=== PATIENT | female | born 1985 | race Caucasian/White ===

== ENCOUNTER → 2018-05-13 | Outpatient (REF) | payer BC ==
[2018-05-13 17:10] LABS: CHLAMYDIA DNA AMPLIFICATION NEGATIVE (NEGATIVE); GC DNA AMPLIFICATION NEGATIVE (NEGATIVE)
== END ==
LOC: M LAB REF 11:59
DX: N39.0 Urinary tract infection, site not specified (principal)
CPT/HCPCS: 87186

== ENCOUNTER → 2018-06-02 | Outpatient (CLI) | payer BC ==
[2018-06-02 14:41] LABS: BASO % 0.1 % (0.0-1.0); EOS # 0.1 10^3/uL (0.0-0.50); EOS % 1.8 % (0.0-3.0); HEMATOCRIT 36.2 % (36.0-47.0); HEMOGLOBIN 12.4 g/dl (12.0-15.5); IMMATURE GRANULOCYTE % 0.1 % (0-3.0); LYMPH # 2.5 10^3/uL (1.5-4.5); LYMPH % 34.2 % (24.0-44.0); MEAN CORPUSCULAR HEMOGLOBIN 32.2 pg (27.0-33.0); MEAN CORPUSCULAR HGB CONC 34.3 g/dl (32.0-36.5); MONO # 0.6 10^3/uL (0.0-0.8); MONO % 7.7 % (0.0-5.0); NEUTROPHILS # 4.2 10^3/uL (1.8-7.7); NEUTROPHILS % 56.1 % (36.0-66.0); PLATELET COUNT, AUTOMATED 205 10^3/uL (150-450); RED BLOOD COUNT 3.85 10^6/uL (4.00-5.40); RED CELL DISTRIBUTION WIDTH 12.1 % (11.5-14.5); WHITE BLOOD COUNT 7.4 10^3/uL (4.0-10.0)
[2018-06-02 14:47] LABS: PROLACTIN 13.4 NG/ML
[2018-06-02 14:58] LABS: HEPATITIS B SURFACE ANTIGEN NEGATIVE (NEGATIVE)
[2018-06-02 15:26] LABS: HEPATITIS C VIRUS ABY INDEX 0.2 INDEX (<0.8)
[2018-06-02 15:27] LABS: HIV 1&2 SCREEN CENTAUR NEGATIVE (NEGATIVE)
[2018-06-02 18:28] LABS: APPEARANCE, URINE CLEAR (CLEAR); BACTERIA, URINE AUTO 1+ (NEGATIVE); BILIRUBIN, URINE AUTO NEGATIVE (NEGATIVE); BLOOD, URINE BLOOD NEGATIVE (NEGATIVE); COLOR, URINE STRAW (YELLOW); GLUCOSE, URINE (UA) AUTO NEGATIVE (NEGATIVE); KETONE, URINE AUTO NEGATIVE (NEGATIVE); LEUKOCYTE ESTERASE, URINE AUTO 2+ (NEGATIVE); NITRITE, URINE AUTO NEGATIVE (NEGATIVE); PROTEIN, URINE AUTO NEGATIVE (NEGATIVE); RBC, URINE AUTO 0 /HPF (0-3); SPECIFIC GRAVITY URINE AUTO 1.003 (1.002-1.035); SQUAMOUS EPITHELIAL CELL UR AU 0 /HPF (0-6); UROBILINOGEN, URINE AUTO 0.2 mg/dL (0.0-2.0); WBC, URINE AUTO 6 /HPF (0-3)
== END ==
LOC: M WUC 12:07
DX: Z11.3 Encounter for screening for infections with a predominantly sexual mode of transmission (principal); N92.1 Excessive and frequent menstruation with irregular cycle
CPT/HCPCS: 84146

== ENCOUNTER → 2020-02-06 | Outpatient (CLI) | payer BC ==
[~2020-02-06] MED LIST: IBUP80TA PO; PRENTAB74 PO
[2020-02-06 16:44] LABS: BASO % 0.2 % (0.0-1.0); EOS # 0.2 10^3/uL (0.0-0.5); HEMATOCRIT 37.9 % (36.0-47.0); LYMPH # 1.7 10^3/uL (1.5-5.0); LYMPH % 14.8 % (24.0-44.0); MEAN CORPUSCULAR HEMOGLOBIN 32.7 pg (27.0-33.0); MEAN CORPUSCULAR HGB CONC 34.3 g/dl (32.0-36.5); MEAN CORPUSCULAR VOLUME 95.5 fl (80.0-96.0); MONO # 0.8 10^3/uL (0.0-0.8); MONO % 6.9 % (0.0-5.0); NEUTROPHILS # 8.9 10^3/uL (1.5-8.5); NEUTROPHILS % 75.8 % (36.0-66.0); PLATELET COUNT, AUTOMATED 213 10^3/uL (150-450); RED BLOOD COUNT 3.97 10^6/uL (4.00-5.40); WHITE BLOOD COUNT 11.7 10^3/uL (4.0-10.0)
[2020-02-06 17:12] LABS: ALBUMIN 3.9 GM/DL (3.2-5.2); ALT/SGPT 18 U/L (12-78); BILIRUBIN,TOTAL 0.9 MG/DL (0.2-1.0); BLOOD UREA NITROGEN 10 MG/DL (7-18); CALCIUM LEVEL 8.8 MG/DL (8.5-10.1); CARBON DIOXIDE LEVEL 26 MEQ/L (21-32); CHLORIDE LEVEL 107 MEQ/L (98-107); FERRITIN 24 NG/ML (8-252); FREE T4 1.01 NG/DL (0.76-1.46); GLOMERULAR FILTRATION RATE > 60.0 (>60); GLUCOSE, FASTING 83 MG/DL (70-100); IRON (FE) 103 UG/DL (50-170); PERCENT SATURATION 35.8 % (13.2-45.0); POTASSIUM SERUM 3.8 MEQ/L (3.5-5.1); RHEUMATOID FACTOR QUANT < 10.0 IU/ML (<15.0); SODIUM LEVEL 140 MEQ/L (136-145); TOTAL IRON BINDING CAPACITY 288 UG/DL (250-450); TOTAL PROTEIN 7.3 GM/DL (6.4-8.2)
[2020-02-06 17:13] LABS: VITAMIN B12 LEVEL 485 PG/ML
[2020-02-06 17:14] LABS: FOLATE 9.6 NG/ML
--- NOTE | 2020-02-06 19:10 | REP ---
Clinical: Lower back pain . Technique: AP, lateral, and coned-down views. Findings: Alignment and lordosis is maintained. The vertebral bodies including transverse process and spinous processes are intact and normal. There is no evidence for acute fracture / compression injury or subluxation. No evidence for spondylolysis or spondylolisthesis. No significant degenerative change is noted. Impression: Normal age-appropriate lumbosacral spine radiograph series. Electronically Signed by Aman Macias MD 02/06/2020 07:01 P
--- NOTE | 2020-02-06 19:30 | REP ---
Clinical: Chronic Neck pain . Technique: AP, lateral, flexion/extension, bilateral oblique, and open-mouth views. Findings: Alignment and lordosis is maintained. There is no evidence for acute fracture / compression injury or subluxation. Very minimal focal degenerative change at C5-6 include subtle early anterior spurring and minimal disc space narrowing. Oblique views demonstrate patent neural foramen. Open mouth view demonstrates normal C1-C2 articulation and odontoid process. Impression: Very minimal early degenerative changes at C5-6. Otherwise essentially age-appropriate normal examination. Electronically Signed by Aman Macias MD 02/06/2020 07:21 P
[2020-02-09 14:07] LABS: ANTINUCLEAR ANTIBODIES DIRECT Negative (Negative); VITAMIN D 1,25 DIHYDROXY 45.1 pg/mL (19.9-79.3)
== END ==
LOC: M WUC 14:38
PROVIDERS: ATTEND Nurse Practitioner Family
DX: R53.83 Other fatigue (principal); M54.5 Low back pain; M54.2 Cervicalgia

== ENCOUNTER → 2020-02-15 | Outpatient (REF) | payer BC, SELFPAY ==
[2020-02-15 20:45] LABS: CHLAMYDIA DNA AMPLIFICATION NEGATIVE (NEGATIVE); GC DNA AMPLIFICATION NEGATIVE (NEGATIVE)
== END ==
LOC: M LAB REF 17:03
PROVIDERS: ATTEND Nurse Practitioner Family
DX: Z01.419 Encounter for gynecological examination (general) (routine) without abnormal findings (principal)

== ENCOUNTER → 2021-02-13 | Outpatient (CLI) | payer OTHER ==
[2021-02-13 16:17] LABS: BASO % 0.2 % (0.0-1.0); EOS # 0.2 10^3/uL (0.0-0.5); EOS % 2.8 % (0.0-3.0); HEMATOCRIT 37.6 % (36.0-47.0); HEMOGLOBIN 12.4 g/dl (12.0-15.5); LYMPH # 1.8 10^3/uL (1.5-5.0); LYMPH % 31.4 % (24.0-44.0); MEAN CORPUSCULAR VOLUME 97.2 fl (80.0-96.0); MONO # 0.6 10^3/uL (0.0-0.8); MONO % 10.1 % (2.0-8.0); NEUTROPHILS # 3.2 10^3/uL (1.5-8.5); NEUTROPHILS % 55.3 % (36.0-66.0); PLATELET COUNT, AUTOMATED 221 10^3/uL (150-450); RED BLOOD COUNT 3.87 10^6/uL (4.00-5.40); WHITE BLOOD COUNT 5.7 10^3/uL (4.0-10.0)
[2021-02-13 16:57] LABS: THYROID PEROXIDASE ANTIBODY < 28.0 U/ML (<60.0); TOTAL 25(OH) VITAMIN D 37.5 NG/ML (30.0-100.0)
== END ==
LOC: M WUC 11:20
PROVIDERS: ATTEND Nurse Practitioner Family
DX: R53.83 Other fatigue (principal)

== ENCOUNTER → 2021-04-03 | Outpatient (REF) | LOC: M LABSMTC 12:32 | PROVIDERS: ATTEND Pediatrics | DX: Z11.52 Encounter for screening for COVID-19 (principal) ==

== ENCOUNTER → 2021-06-17 | Outpatient (REF) | LOC: M EMP 14:29 | PROVIDERS: ATTEND Family Medicine | DX: Z20.828 Contact with and (suspected) exposure to other viral communicable diseases (principal); Z11.59 Encounter for screening for other viral diseases ==

== ENCOUNTER → 2021-07-04 | Outpatient (REF) | LOC: M EMP 10:58 | PROVIDERS: ATTEND Family Medicine | DX: Z20.822 Contact with and (suspected) exposure to COVID-19 (principal) ==

== ENCOUNTER → 2021-07-08 | Outpatient (REF) | LOC: M EMP 09:42 | PROVIDERS: ATTEND Family Medicine | DX: Z20.828 Contact with and (suspected) exposure to other viral communicable diseases (principal); Z11.52 Encounter for screening for COVID-19 ==

== ENCOUNTER → 2021-07-31 | Outpatient (CLI) | payer SELFPAY ==
[~2021-07-31] MED LIST changes: +CETI-24 PO; +CYAN500T14 PO; +GUMMCHW PO; +LORY1TAB2 PO
== END ==
LOC: M LABSMTC 10:13
PROVIDERS: ATTEND Anesthesiology
DX: Z01.818 Encounter for other preprocedural examination (principal); Z11.52 Encounter for screening for COVID-19

== ENCOUNTER 2021-08-05 07:31 | Day surgery (SDC) | payer BC, SELFPAY ==
[~2021-08-05] VITALS: Ht 160 cm; Wt 61.6 kg
[~2021-08-05 07:31] MED LIST changes: +LR 1,000 ML IV ONE
--- OUTSIDE RECORDS SUMMARY | 2021-08-05 07:37 | CCD ---
Author Author [facility] Organization [facility] Address Unknown Phone Unavailable Care Team Providers Care Ski Maker Wood Name Role Phone Inna Rod MD Unavailable Unavailable Abriss B Cezar MARSHALL Unavailable Unavailable Abriss B Cezar MARSHALL Unavailable Unavailable Abriss B Cezar MARSHALL Unavailable Unavailable Abriss B Cezar MARSHALL Unavailable Unavailable Abriss B Cezar MARSHALL Unavailable Unavailable Abriss B Cezar MARSHALL Unavailable Unavailable Abriss B Cezar MARSHALL Unavailable Unavailable Abriss B Cezar MARSHALL Unavailable Unavailable Abriss B Cezar MARSHALL Unavailable Unavailable Abriss B Cezar MARSHALL Unavailable Unavailable Abriss B Cezar MARSHALL Unavailable Unavailable Abrterence B Cezar MARSHALL Unavailable Unavailable Abrterence B Cezar MARSHALL Unavailable Unavailable Abrterence B Cezar MARSHALL Unavailable Unavailable Abriss B Cezar MARSHALL Unavailable Unavailable Abriss B Cezar MARSHALL Unavailable Unavailable Abriss B Cezar MARSHALL Unavailable Unavailable Abriss B Cezar MARSHALL Unavailable Unavailable Pleskach, Claudia YARN BLEACHING MACHINE OPERATOR Unavailable Unavailable Pleskach, Claudia YARN BLEACHING MACHINE OPERATOR Unavailable Unavailable Pleskach, Claudia YARN BLEACHING MACHINE OPERATOR Unavailable Unavailable Pleskach, Claudia YARN BLEACHING MACHINE OPERATOR Unavailable Unavailable Pleskach, Claudia YARN BLEACHING MACHINE OPERATOR Unavailable Unavailable Pleskach, Claudia YARN BLEACHING MACHINE OPERATOR Unavailable Unavailable Pleskach, Claudia YARN BLEACHING MACHINE OPERATOR Unavailable Unavailable Pleskach, Claudia YARN BLEACHING MACHINE OPERATOR Unavailable Unavailable Pleskach, Claudia YARN BLEACHING MACHINE OPERATOR Unavailable Unavailable Pleskach, Claudia YARN BLEACHING MACHINE OPERATOR Unavailable Unavailable Pleskach, Claudia YARN BLEACHING MACHINE OPERATOR Unavailable Unavailable Pleskach, Claudia YARN BLEACHING MACHINE OPERATOR Unavailable Unavailable Pleskach, Claudia YARN BLEACHING MACHINE OPERATOR Unavailable Unavailable Pleskach, Claudia YARN BLEACHING MACHINE OPERATOR Unavailable Unavailable Pleskach, Claudia YARN BLEACHING MACHINE OPERATOR Unavailable Unavailable Pleskach, Claudia YARN BLEACHING MACHINE OPERATOR Unavailable Unavailable Pleskach, Claudia YARN BLEACHING MACHINE OPERATOR Unavailable Unavailable Pleskach, Claudia YARN BLEACHING MACHINE OPERATOR Unavailable Unavailable Pleskach, Claudia YARN BLEACHING MACHINE OPERATOR Unavailable Unavailable Pleskach, Clauida YARN BLEACHING MACHINE OPERATOR Unavailable Unavailable Pleskach, Claudia YARN BLEACHING MACHINE OPERATOR Unavailable Unavailable Pleskach, Claudia YARN BLEACHING MACHINE OPERATOR Unavailable Unavailable Pleskach, Claudia YARN BLEACHING MACHINE OPERATOR Unavailable Unavailable Pleskach, Claudia YARN BLEACHING MACHINE OPERATOR Unavailable Unavailable Pleskach, Claudia YARN BLEACHING MACHINE OPERATOR Unavailable Unavailable Pleskach, Claudia YARN BLEACHING MACHINE OPERATOR Unavailable Unavailable Pleskach, Claudia YARN BLEACHING MACHINE OPERATOR Unavailable Unavailable Pleskach, Claudia YARN BLEACHING MACHINE OPERATOR Unavailable Unavailable Pleskach, Claudia YARN BLEACHING MACHINE OPERATOR Unavailable Unavailable Pleskach, Claudia YARN BLEACHING MACHINE OPERATOR Unavailable Unavailable Pleskach, Claudia YARN BLEACHING MACHINE OPERATOR Unavailable Unavailable Pleskach, Claudia YARN BLEACHING MACHINE OPERATOR Unavailable Unavailable Pleskach, Claudia YARN BLEACHING MACHINE OPERATOR Unavailable Unavailable Pleskach, Claudia YARN BLEACHING MACHINE OPERATOR Unavailable Unavailable Pleskach, Claudia YARN BLEACHING MACHINE OPERATOR Unavailable Unavailable Pleskach, Claudia YARN BLEACHING MACHINE OPERATOR Unavailable Unavailable Pleskach, Claudia YARN BLEACHING MACHINE OPERATOR Unavailable Unavailable Pleskach, Claudia YARN BLEACHING MACHINE OPERATOR Unavailable Unavailable Pleskach, Claudia YARN BLEACHING MACHINE OPERATOR Unavailable Unavailable Pleskach, Claudia YARN BLEACHING MACHINE OPERATOR Unavailable Unavailable Pleskach, Claudia YARN BLEACHING MACHINE OPERATOR Unavailable Unavailable Pleskach, Claudia YARN BLEACHING MACHINE OPERATOR Unavailable Unavailable Pleskach, Claudia YARN BLEACHING MACHINE OPERATOR Unavailable Unavailable Pleskach, Claudia YARN BLEACHING MACHINE OPERATOR Unavailable Unavailable Ivan Stone PH.D., M.D. Unavailable Unavailable Ivan Stone PH.D., M.D. Unavailable Unavailable Ivan Stone PH.D., M.D. Unavailable Unavailable Ivan Stone PH.D., M.D. Unavailable Unavailable Ivan Stone PH.D., M.D. Unavailable Unavailable Ivan Stone PH.D., M.D. Unavailable Unavailable Chase, C Shahid PH.D., M.D. Unavailable Unavailable Chase, C Shahid PH.D., M.D. Unavailable Unavailable Chase, C Shahid PH.D., M.D. Unavailable Unavailable Chase, C Shahid PH.D., M.D. Unavailable Unavailable Chase, C Shahid PH.D., M.D. Unavailable Unavailable Chase, C Shahid PH.D., M.D. Unavailable Unavailable Chase, C Shahid PH.D., M.D. Unavailable Unavailable Chase, C Shahid PH.D., M.D. Unavailable Unavailable Chase, C Shahid PH.D., M.D. Unavailable Unavailable Chase, C Shahid PH.D., M.D. Unavailable Unavailable Chase, C Shahid PH.D., M.D. Unavailable Unavailable Chase, C Shahid PH.D., M.D. Unavailable Unavailable Chase, C Shahid PH.D., M.D. Unavailable Unavailable Chase, C Shahid PH.D., M.D. Unavailable Unavailable Chase, C Shahid PH.D., M.D. Unavailable Unavailable Chase, C Shahid PH.D., M.D. Unavailable Unavailable Chase, C Shahid PH.D., M.D. Unavailable Unavailable Chase, C Shahid PH.D., M.D. Unavailable Unavailable Chase, C Shahid PH.D., M.D. Unavailable Unavailable Chase, C Shahid PH.D., M.D. Unavailable Unavailable Chase, C Shahid PH.D., M.D. Unavailable Unavailable Chase, C Shahid PH.D., M.D. Unavailable Unavailable Chase, C Shahid PH.D., M.D. Unavailable Unavailable Chase, C Shahid PH.D., M.D. Unavailable Unavailable Chase, C Shahid PH.D., M.D. Unavailable Unavailable Chase, C Shahid PH.D., M.D. Unavailable Unavailable Chase, C Shahid PH.D., M.D. Unavailable Unavailable Chase, C Shahid PH.D., M.D. Unavailable Unavailable Chase, C Shahid PH.D., M.D. Unavailable Unavailable Chase, C Shahid PH.D., M.D. Unavailable Unavailable Chase, C Shahid PH.D., M.D. Unavailable Unavailable Chase, C Shahid PH.D., M.D. Unavailable Unavailable Chase, C Shahid PH.D., M.D. Unavailable Unavailable Chase, C Shahid PH.D., M.D. Unavailable Unavailable Chase, C Shahid PH.D., M.D. Unavailable Unavailable Chase, C Shahid PH.D., M.D. Unavailable Unavailable Chase, C Shahid PH.D., M.D. Unavailable Unavailable Chase, C Shahid PH.D., M.D. Unavailable Unavailable Chase, C Shahid PH.D., M.D. Unavailable Unavailable Chase, C Shahid PH.D., M.D. Unavailable Unavailable Chase, C Shahid PH.D., M.D. Unavailable Unavailable Chase, C Shahid PH.D., M.D. Unavailable Unavailable Chase, C Shahid PH.D., M.D. Unavailable Unavailable Chase, C Shahid PH.D., M.D. Unavailable Unavailable Chase, C Shahid PH.D., M.D. Unavailable Unavailable Chase, C Shahid PH.D., M.D. Unavailable Unavailable Chase, C Shahid PH.D., M.D. Unavailable Unavailable Chase, C Shahid PH.D., M.D. Unavailable Unavailable Chase, C Shahid PH.D., M.D. Unavailable Unavailable Chase, C Hsahid PH.D., M.D. Unavailable Unavailable Chase, C Shahid PH.D., M.D. Unavailable Unavailable Chase, C Shahid PH.D., M.D. Unavailable Unavailable Chase, C Shahid PH.D., M.D. Unavailable Unavailable Chase, C Shahid PH.D., M.D. Unavailable Unavailable Chase, C Shahdi PH.D., M.D. Unavailable Unavailable Chase, C Shahid PH.D., M.D. Unavailable Unavailable Chase, C Shahid PH.D., M.D. Unavailable Unavailable Chase, C Shahid PH.D., M.D. Unavailable Unavailable Chase, C Shahid PH.D., M.D. Unavailable Unavailable Chase, C Shahid PH.D., M.D. Unavailable Unavailable Chase, C Shahid PH.D., M.D. Unavailable Unavailable Chase, C Shahid PH.D., M.D. Unavailable Unavailable Chase, C Shahid PH.D., M.D. Unavailable Unavailable Chase, C Shahid PH.D., M.D. Unavailable Unavailable Chase, C Shahid PH.D., M.D. Unavailable Unavailable Chase, C Shahid PH.D., M.D. Unavailable Unavailable Chase, C Shahid PH.D., M.D. Unavailable Unavailable Chase, C Shahid PH.D., M.D. Unavailable Unavailable Ivan Stone PH.D., M.D. Unavailable Unavailable Ivan Stone PH.D., M.D. Unavailable Unavailable Ivan Stone PH.D., M.D. Unavailable Unavailable Ivan Stone PH.D., M.D. Unavailable Unavailable Ivan Stone PH.D., M.D. Unavailable Unavailable Ivan Stone PH.D., M.D. Unavailable Unavailable Ivan Stone PH.D., M.D. Unavailable Unavailable Ivan Stone PH.D., M.D. Unavailable Unavailable Re-disclosure Warning The records that you are about to access may contain information from federally-assisted alcohol or drug abuse programs. If such information is present, then the following federally mandated warning applies: This information has been disclosed to you from records protected by federal confidentiality rules (42 CFR part 2). The federal rules prohibit you from making any further disclosure of this information unless further disclosure is expressly permitted by the written consent of the person to whom it pertains or as otherwise permitted by 42 CFR part 2. A general authorization for the release of medical or other information is NOT sufficient for this purpose. The Federal rules restrict any use of the information to criminally investigate or prosecute any alcohol or drug abuse patient.The records that you are about to access may contain highly sensitive health information, the redisclosure of which is protected by Article 27-F of the [facility] Public Health law. If you continue you may have access to information: Regarding HIV / AIDS; Provided by facilities licensed or operated by the [facility] Office of Mental Health; or Provided by the [facility] Office for People With Developmental Disabilities. If such information is present, then the following [facility] mandated warning applies: This information has been disclosed to you from confidential records which are protected by state law. State law prohibits you from making any further disclosure of this information without the specific written consent of the person to whom it pertains, or as otherwise permitted by law. Any unauthorized further disclosure in violation of state law may result in a fine or fpc sentence or both. A general authorization for the release of medical or other information is NOT sufficient authorization for further disc losure. Allergies and Adverse Reactions Type Description Substance Reaction Status Data Source(s ) Drug Allergy Drug Allergy [facility] ([facility] Family History Family Member Name Family Member Gender Family Member Status Date o f Status Description Data Source(s) Unknown Unknown Problem [facility] ([facility]) Unknown Unknown Problem [facility] ([facility]) Encounters Encounter Providers Location Date Indications Data Source(s ) Outpatient Attender: Shahid Stone PH.D., M.D. Gentry/Anabel/A ngel/Reindl 06/28/2021 02:45:00 PM EDT MED[facility] ([facility], ) Outpatient Attender: Cezar Rinaldi/Anabel/Jarred/Re indl 02/12/2021 09:30:00 AM EDT MED[facility] ([facility]pe, ) [place] [address] [facility] [address] 01/15/2021 12:00:00 AM EDT eCW1 ([facility]) Outpatient Attender: Claudia Mitchell [facility] Main Office 01/14/2021 1 0:30:00 AM EDT [facility] ([facility] [place] [address] [facility] [address] 11/16/2020 12:00:00 AM EST eCW1 ([facility]) [place] [address] [facility] [place] [address] 11/15/2020 12:00:00 AM EST eCW1 ([facility]) Immunizations Vaccine Date Status Description Data Source(s) COVID-19 VACCINE Moderna 10/22/2020 12:00:00 AM EST completed [facility] Vaccine Series Complete: YESThis Data wa s Submitted to [facility] Via This Week In. Moderna Sars-(Covid-19) vaccine, mRNA, LNP-S, PF, 100 mcg/ 0.5 mL 10/21/2020 11:00:00 PM EST completed [facility] ([facility] COVID-19 VACCINE Moderna 09/24/2020 12:00:00 AM EST completed [facility] Vaccine Series Complete: NOThis Data was Submitted to [facility] Via This Week In. Moderna Sars-(Covid-19) vaccine, mRNA, LNP-S, PF, 100 mcg/ 0.5 mL 09/23/2020 11:00:00 PM EST completed [facility] ([facility] Medications Medication Brand Name Start Date Product Form Dose Route Admi nistrative Instructions Pharmacy Instructions Status Indications Reaction Description Data Source(s) Drospirenone-Ethinyl Estradiol 3-0.02 MG Drospirenone- Ethinyl Estradiol 3-0.02 MG 11/16/2020 12:00:00 AM EST 1.0 {tablet} activ e Drospirenone- Ethinyl Estradiol 3-0.02 MG eCW1 ([facility]) Drospirenone-Ethinyl Estradiol 3-0.02 MG Drospirenone- Ethinyl Estradiol 3-0.02 MG 11/16/2020 12:00:00 AM EST 1.0 {tablet} activ e Drospirenone- Ethinyl Estradiol 3-0.02 MG eCW1 ([facility]) Drospirenone-Ethinyl Estradiol 3-0.02 MG Drospirenone- Ethinyl Estradiol 3-0.02 MG 11/16/2020 12:00:00 AM EST 1.0 {tablet} activ e Drospirenone- Ethinyl Estradiol 3-0.02 MG eCW1 ([facility]) Loryna 28 Day Pack 3-0.02 mg ETHINYL ESTRADIOL/DROSPIRENONE 11/16/2020 12:00:00 AM EST tablet 28 TAKE ONE TABLET BY MOUTH MARK RY DAY TAKE ONE TABLET BY MOUTH EVERY DAY SOLD: 12/17/2020 [facility] Loryna 28 Day Pack 3-0.02 mg ETHINYL ESTRADIOL/DROSPIRENONE 11/16/2020 12:00:00 AM EST tablet 28 TAKE ONE TABLET BY MOUTH MARK RY DAY TAKE ONE TABLET BY MOUTH EVERY DAY SOLD: 11/19/2020 [facility] 5 mg/gram (0.5 %) 07/16/2020 12:00:00 AM EDT ointment 3 APPLY TO SUTURES FOUR TIMES A DAY FOR 7-10 DAYS APPLY TO SUTURES FOUR TIMES A DAY FOR 7-10 DAYS SOLD: 07/18/2020 [facility] Insurance Providers Payer name Policy type / Coverage type Policy ID Covered alliance party ID Covered alliance party's relationship to ceron Policy Ceron Plan Information BLUE [employer] AND [facility] 1 [id number] 1 [id number] [facility] [id number] Self [id number] [place] [employer] PLAN O [id number] S [id number] [place] [employer] O [id number] S [id number] [place] [place] WAT[place] 306/806 [id number] SP [id number] [employer] BCBS B [id number] S VYS [id number] [place] [employer] [place] Commercial [id number] Self [id number] [employer] Commercial [id number] Self [id number] [employer] Commercial [id number] Self [id number] [id number] [id number] [facility] [id number] [facility] [id number] [facility] COMMUNITY PLAN [facility] [id number] SP [id number] BLUE [employer] PLAN [id number] SP [id number] [facility] BLUE [id number] SP [id number] SELF PAY ONLY [id number] SP [id number] UN [place] CHOICE PLUS [id number] SP [id number] Problems, Conditions, and Diagnoses Code Display Name Description Problem Type Effective Dates Data Source(s) J35.01 Chronic tonsillitis Chronic tonsillitis Problem 1 12:00:00 AM EDT GWENDOLYN ([facility], ) R19.6 Symptom of head and neck region Symptom of head and ne ck region Problem 06/28/2021 12:00:00 AM EDT MEDELIGIO ([facility], ) F32.81 [id number] PMDD (premenstrual dysphoric disorder) Pr oblem 11/15/2020 12:00:00 AM EST eCW1 ([facility]) N94.6 [id number] Dysmenorrhea Problem 11/15/2020 12:00:00 AM EST eCW1 ([facility]) N93.9 [id number] Abnormal uterine bleeding (AUB) Problem 11/15/2020 12:00:00 AM EST eCW1 ([facility]) Surgeries/Procedures Procedure Description Date Indications Data Source(s) OFFICE OUTPATIENT VISIT 25 MINUTES 06/28/2021 12:00:00 AM EDT [facility] ([facility]) OFFICE OUTPATIENT NEW 30 MINUTES 02/12/2021 12:00:00 A M EDT [facility] ([facility]) Results ID Date Data Source [id number] 07/08/2021 09:44:00 AM EDT [facility] Name Value Range Interpretation Code Description Data Rosa rce(s) Supporting Document(s) SARS coronavirus 2 RNA [Presence] in Res piratory specimen by LYNN with probe detection NEGATIVE [facility] This lab was ordered by [facility] a nd reported by [facility]. ID Date Data Source [id number] 07/04/2021 11:02:00 AM EDT [facility] Name Value Range Interpretation Code Description Data Rosa rce(s) Supporting Document(s) SARS coronavirus 2 RNA [Presence] in Res piratory specimen by LYNN with probe detection NEGATIVE [facility] This lab was ordered by [facility] a nd reported by [facility]. ID Date Data Source [id number] 06/17/2021 02:32:00 PM EDT [facility] Name Value Range Interpretation Code Description Data Rosa rce(s) Supporting Document(s) SARS coronavirus 2 RNA [Presence] in Res piratory specimen by LYNN with probe detection NEGATIVE [facility] This lab was ordered by [facility] a nd reported by [facility]. ID Date Data Source [id number] 02/13/2021 11:20:00 AM EDT [facility] ([facility] Name Value Range Interpretation Code Description Data Rosa rce(s) Supporting Document(s) Thryoglobulin Antibodies (Mahesh) Laboratory test result 0.0-0.9 [facility] ([facility] Thyroglobulin Antibody measured by [employer] [facility] Thyroglobulin Quantitative 24.8 ng/mL 1.5-38.5 [facility] ([facility] . According to the National Academy of Clinical Biochemistry, the reference interval for Thyroglobulin (TG) should be related to euthyroid patients and not for patients who underwent thyroidectomy. TG reference intervals for these patients depend on the residual mass of the thyroid tissue left after surgery. Establishing a post-operative baseline is recommended. The assay limit of quantitation is 0.1 ng/mL . Thyroglobulin measured by [employer] [facility] Performed at: [facility] [phone] [employer] Analyst: Rita De La Rosa MD, Phone: [phone] ID Date Data Source [id number] 02/13/2021 11:20:00 AM EDT [facility] ([facility] Name Value Range Interpretation Code Description Data Rosa [facility](s) Supporting Document(s) Calcidiol [Mass/volume] in Serum or Plasma 37.5 ng/mL 30.0-100.0 [facility] ([facility] Thyroperoxidase Ab [Units/volume] in Serum or Plasma Laboratory shahla t result [facility] ([facility] ID Date Data Source [id number] 02/13/2021 11:20:00 AM EDT [facility] ([facility] Name Value Range Interpretation Code Description Data Rosa [facility](s) Supporting Document(s) Thyrotropin [Units/volume] in Serum or Plasma 1.420 uIU/ML 0.358-3.74 0 [facility] ([facility] Thyroxine (T4) free [Mass/volume] in Serum or Plasma 1.10 ng/dL 0.76- 1.46 [facility] ([facility] ID Date Data Source [id number] 02/13/2021 11:20:00 AM EDT [facility] ([facility] Name Value Range Interpretation Code Description Data Rosa rce(s) Supporting Document(s) White Blood Count 5.7 10 4.0-10.0 [facility] ([facility] Hemoglobin 12.4 g/dL 12.0-15.5 [facility] ([facility] Red Blood Count 3.87 10 4.00-5.40 [facility] ([facility] Mean Corpuscular Volume 97.2 fl 80.0-96.0 M EDENT ([facility] Mean Corpuscular Hemoglobin 32.0 pg 27.0-33.0 [facility] ([facility] Hematocrit 37.6 % 36.0-47.0 [facility] ([facility] Mean Corpuscular HGB Conc 33.0 g/dL 32.0-36.5 [facility] ([facility] Red Cell Distribution Width 12.3 % 11.5-14.5 [facility] ([facility] Platelet Count, Automated 221 10 150-450 [facility] ([facility] Neutrophils % 55.3 % 36.0-66.0 [facility] ([facility] Lymph % 31.4 % 24.0-44.0 [facility] ([facility] Eos % 2.8 % 0.0-3.0 [facility] ([facility] [place] % 10.1 % 2.0-8.0 [facility] ([facility] Baso % 0.2 % 0.0-1.0 [facility] ([facility] Immature Granulocyte % 0.2 % 0-3.0 [facility] ([facility] Nucleated Red Blood Cell % 0.0 % 0-0 MED [facility] ([facility] Neutrophils # 3.2 10 1.5-8.5 [facility] ([facility] Lymph # 1.8 10 1.5-5.0 [facility] ([facility] [place] # 0.6 10 0.0-0.8 [facility] ([facility] Eos # 0.2 10 0.0-0.5 [facility] ([facility] Baso # 0.0 10 0.0-0.2 [facility] ([facility] ID Date Data Source [id number] 07/18/2020 12:00:00 AM EDT [facility] Name Value Range Interpretation Code Description Data Rosa rce(s) Supporting Document(s) SARS coronavirus 2 Ag [facility] This lab was ordered by [facility] and reported by [facility]. Procedure Social History Code Duration Value Status Description Data Source(s ) Smoking 01/14/2021 12:00:00 AM EDT Patient is a former smoker completed Patient is a former smoker [facility] ([facility] Smoking 11/15/2020 12:00:00 AM EST Former Smoker completed Former Smoker eCW1 ([facility]) Smoking 11/15/2020 12:00:00 AM EST Former Smoker completed Former Smoker eCW1 ([facility]) Smoking 11/15/2020 12:00:00 AM EST Former Smoker completed Former Smoker eCW1 ([facility]) Vital Signs ID Date Data Source UNK Name Value Range Interpretation Code Description Data Source(s) Body height 63 [in_i] 63 [in_i] MEDENT ([facility]) 5'3" Body weight 140.00 [lb_av] 140.00 [lb_av] MEDEN T ([facility]) Body mass index (BMI) [Ratio] 24.8 kg/m2 24.8 k g/m2 [facility] ([facility]) [place] body weight 115 [lb_av] 115 [lb_av] MEDEN T ([facility]) Body weight 63.504 kg [address] [facility] ([facility]) Body surface area Derived from formula 1.66 m2 1.[address] [facility] ([facility]) Heart rate 82 /min 82 /min [facility] ([facility]) Oxygen saturation in Arterial blood by Pulse oximetry 100 % 100 % [facility] ([facility]) Systolic blood pressure 138 mm[Hg] 138 mm[Hg] [facility] Diastolic blood pressure 79 mm[Hg] 79 mm[Hg] [facility] ([facility]) Body height 63 [in_i] 63 [in_i] [facility] ([facility]) 5'3" Body weight 139.00 [lb_av] 139.00 [lb_av] MEDEN T ([facility]) Body mass index (BMI) [Ratio] 24.6 kg/m2 24.6 k g/m2 [facility] ([facility]) D[place]her body weight 115 [lb_av] 115 [lb_av] MEDEN T ([facility]) Body weight 63.050 kg [address] [facility] ([facility]) Body surface area Derived from formula 1.66 m2 1.[address] [facility] ([facility]) Body height 63 [in_i] 63 [in_i] [facility] ([facility]) 5'3" Body weight 139.00 [lb_av] 139.00 [lb_av] MEDEN T ([facility]) Body mass index (BMI) [Ratio] 24.6 kg/m2 24.6 k g/m2 [facility] ([facility]) [place] body weight 115 [lb_av] 115 [lb_av] MEDEN T ([facility]) Body weight 63.050 kg 63.050 kg [facility] ([facility]) Body surface area Derived from formula 1.66 m2 1.66 m2 [facility] ([facility]) Systolic blood pressure 118 mm[Hg] 118 mm[Hg] M EDENT ([facility] Diastolic blood pressure 892 mm[Hg] 892 mm[Hg] [facility] ([facility] Heart rate 80 /min 80 /min [facility] ([facility] Body temperature 97.1 [degF] 97.1 [degF] [facility] ([facility] Respiratory rate 16 /min 16 /min [facility] ( [facility] Body height 63 [in_i] 63 [in_i] [facility] [facility] 5'3" Body weight 143.25 [lb_av] 143.25 [lb_av] MEDEN T ([facility] Oxygen saturation in Arterial blood by Pulse oximetry 99 % 99 % MEDENT ([facility] [place] body weight 115 [lb_av] 115 [lb_av] MEDEN T ([facility] Body mass index (BMI) [Ratio] 25.4 kg/m2 25.4 k g/m2 MEDENT ([facility] Body weight 146 [lb_av] 146 [lb_av] eCW1 ([facility]) Body weight 66.22 kg 66.22 kg eCW1 ([facility]) Body height 63 [in_i] 63 [in_i] eCW1 ([facility]) Body mass index (BMI) [Ratio] 25.86 kg/m2 25.86 kg/m2 eCW1 ([facility]) Systolic blood pressure 120 mm[Hg] 120 mm[Hg] e CW1 ([facility]) Diastolic blood pressure 80 mm[Hg] 80 mm[Hg] eCW1 ([facility]) Patient Treatment Plan of Care Planned Activity Planned Date Details Description Data Source (s) Drospirenone-Ethinyl Estradiol 3-0.02 MG 11/16/2020 12:00:00 AM EST eCW1 ([facility]) Drospirenone-Ethinyl Estradiol 3-0.02 MG 11/16/2020 12:00:00 AM EST eCW1 ([facility]) Drospirenone-Ethinyl Estradiol 3-0.02 MG 11/16/2020 12:00:00 AM EST eCW1 ([facility])
--- OUTSIDE RECORDS SUMMARY | 2021-08-05 07:37 | CCD | Continuity of Care Document ---
Author Author Luciana STONE MD Organization Unknown Address [address] [facility] [address] [place] [address] Phone [phone] Care Team Providers Care Oracle Iam Consultant Name Role Phone Claudia Mitchell N.P. AUTM [phone] Problems Active Problems Provider Date Symptom of head and neck region Shahid Stone MD Onset: 1 Chronic tonsillitis Shahid Stone MD Onset: 06/28/2021 Social History Type Date Description Comments Sex Unknown ETOH Use 3 A Month Recreational Drug Use Denies Drug Use Tobacco Use Start: Unknown End: Unknown Patient is a former smoker Allergies, Adverse Reactions, Alerts Active Allergies Criticality Reaction | Severity Comments Date Clindamycin Unable to assess criticality 02/12/2021 Inactive Allergies NKDA Unable to assess criticality 02/12/2021 Medications Active Medications SIG Qnty Indications Ordering Provide r Date Drospirenone-Ethinyl Estradiol 3-0.02mg Tablets Gris Morgan, A.R.N.P. Zyrtec Allergy 10mg Capsules 1 by mouth every day Unknown Immunizations Description No Information Available Vital Signs Date Vital Result Comment 06/28/2021 2:46pm BP Systolic 138 mmHg BP Diastolic 79 mmHg Heart Rate 82 /min O2 % BldC Oximetry 100 % Height 63 inches 5'3" Weight 140.00 lb BMI (Body Mass Index) 24.8 kg/m2 [place] Body Weight 115 lb Weight 63.504 kg BSA (Body Surface Area) 1.66 m2 02/12/2021 9:55am Height 63 inches 5'3" Weight 139.00 lb BMI (Body Mass Index) 24.6 kg/m2 [place] Body Weight 115 lb Weight 63.050 kg BSA (Body Surface Area) 1.66 m2 Results Description No Information Available Procedures Date Code Description Status 06/28/2021 67993 Office/Outpatient Established Mo d MDM 30-39 Min Completed 02/12/2021 29744 Office/Outpatient New Low MDM 30 -44 Minutes Completed Medical Devices Description No Information Available Encounters Type Date Location Provider Dx Diagnosis Office Visit 06/28/2021 2:45p Located within [facility] David Nova J35.01 Chronic tonsillitis R19.6 Halitosis Office Visit 02/12/2021 9:30a Located within [facility] Cezar Rod MD J35.01 Chronic tonsillitis Assessments Date Code Description Provider 06/28/2021 J35.01 Chronic tonsillitis Shahid Stone MD 06/28/2021 R19.6 Halitosis Shahid Stone MD 02/12/2021 J35.01 Chronic tonsillitis Cezar jasso MD Plan of Treatment 06/28/2021 - Shahid Stone MD* J35.01 Chronic tonsillitis* New Orders:* Tonsillectomy Greater Than 12 Years, Ordered: 06/28/21 * Comments:* Given that tomi has failed all conservative efforts to control her chronic tonsillitis and halitosis we recommended tonsillectomy procedure. I reviewed the risks and benefits of all and all questions were answered. She indicated she would like to proceed. We will arrange for this in the near future as soon as schedules permit. She will refrain from use of any NSAID type products or Multivite's for 2 weeks before the procedure. * R19.6 Halitosis Functional Status Description No Information Available Mental Status Description No Information Available Referrals Refer to Reason for Referral Status Appt Date Cezar Rod M.D. Chronic tonsil stones Scheduled 02/2021 [facility] [address] [address] [phone]
--- OUTSIDE RECORDS SUMMARY | 2021-08-05 07:37 | CCD | Continuity of Care Document ---
Author Author Luciana STONE MD Organization Unknown Address [address] [facility] [address] [place] [address] Phone [phone] Care Team Providers Care Animal Anatomist Name Role Phone Claudia Mitchell N.P. AUTM [phone] Problems Active Problems Provider Date Symptom of [...] lb BMI (Body Mass Index) 24.8 kg/m2 [place] Body Weight 115 lb Weight 63.504 kg BSA (Body Surface Area) 1.66 m2 02/12/2021 9:55am Height 63 inches 5'3" Weight 139.00 lb BMI (Body Mass Index) 24.6 kg/m2 [place] Body Weight 115 lb Weight 63.050 kg BSA (Body Surface Area) 1.66 m2 Results Description No Information Available Procedures Date Code Description Status 06/28/2021 32199 Office/Outpatient Established Mo d MDM 30-39 Min Completed 02/12/2021 31723 Office/Outpatient New Low MDM 30 -44 Minutes Completed Medical Devices Description No Information Available Encounters Type Date Location Provider Dx Diagnosis Office Visit 06/28/2021 2:45p [facility] David Nova J35.01 Chronic tonsillitis R19.6 Halitosis Office Visit 02/12/2021 9:30a [facility] Cezar Rod MD J35.01 Chronic tonsillitis [...] Rod M.D. Chronic tonsil stones Scheduled 02/2021 [facility] [address] [address] [phone]
--- OUTSIDE RECORDS SUMMARY | 2021-08-05 07:37 | CCD | Continuity of Care Document ---
Author Author Luciana STONE MD Organization Unknown Address [address] [facility] [address] [place] [address] Phone [phone] Care Team Providers Care Lead Sewage Plant Operator Name Role Phone Claudia Mitchell N.P. AUTM [phone] Problems Active Problems Provider Date Symptom of [...] lb BMI (Body Mass Index) 24.8 kg/m2 [place] Body Weight 115 lb Weight 63.504 kg BSA (Body Surface Area) 1.66 m2 02/12/2021 9:55am Height 63 inches 5'3" Weight 139.00 lb BMI (Body Mass Index) 24.6 kg/m2 [place] Body Weight 115 lb Weight 63.050 kg BSA (Body Surface Area) 1.66 m2 Results Description No Information Available Procedures Date Code Description Status 06/28/2021 19555 Office/Outpatient Established Mo d MDM 30-39 Min Completed 02/12/2021 84604 Office/Outpatient New Low MDM 30 -44 Minutes Completed Medical Devices Description No Information Available Encounters Type Date Location Provider Dx Diagnosis Office Visit 06/28/2021 2:45p [facility] David Nova J35.01 Chronic tonsillitis R19.6 Halitosis Office Visit 02/12/2021 9:30a [facility] Cezar Rod MD J35.01 [...] Rod M.D. Chronic tonsil stones Scheduled 02/2021 [facility] [address] [address] [phone]
--- OUTSIDE RECORDS SUMMARY | 2021-08-05 07:37 | CCD | Continuity of Care Document ---
Author Author Luciana STONE MD Organization Unknown Address [address] [facility] [address] [place] [address] Phone [phone] Care Team Providers Care [place] Name Role Phone Claudia Mitchell N.P. AUTM [phone] Problems Active Problems Provider Date Symptom of [...] lb BMI (Body Mass Index) 24.8 kg/m2 [place] Body Weight 115 lb Weight 63.504 kg BSA (Body Surface Area) 1.66 m2 02/12/2021 9:55am Height 63 inches 5'3" Weight 139.00 lb BMI (Body Mass Index) 24.6 kg/m2 [place] Body Weight 115 lb Weight 63.050 kg BSA (Body Surface Area) 1.66 m2 Results Description No Information Available Procedures Date Code Description Status 06/28/2021 42568 Office/Outpatient Established Mo d MDM 30-39 Min Completed 02/12/2021 86320 Office/Outpatient New Low MDM 30 -44 Minutes Completed Medical Devices Description No Information Available Encounters Type Date Location Provider Dx Diagnosis Office Visit 06/28/2021 2:45p [facility] David Nova J35.01 Chronic tonsillitis R19.6 Halitosis Office Visit 02/12/2021 9:30a [facility] Cezar Rod MD J35.01 Chronic tonsillitis [...] Rod M.D. Chronic tonsil stones Scheduled 02/2021 [facility] [address] [address] [phone]
[2021-08-05] MEDS ORDERED: LIDOCAINE 2% 100MG/5ML SDV (FOR ANES.) As Ordered ONE (09:08)
[2021-08-05] MEDS ORDERED: MIDAZOLAM INJ 2MG/2ML VIAL (J2250 PER 1MG) As Ordered ONE (09:08)
[2021-08-05] MEDS ORDERED: dexameTHASONE 4 MG/ML 1ML VIAL (J1100 PER 1MG) As Ordered ONE (09:08)
[2021-08-05] MEDS ORDERED: fentaNYL 100 MCG/2 ML INJECTION (J3010) As Ordered ONE (09:08)
[2021-08-05] MEDS ORDERED: ONDANSETRON 4MG/2ML VIAL As Ordered ONE (09:08)
[2021-08-05] MEDS ORDERED: propofoL 200 MG/20 ML VIAL As Ordered ONE (09:08)
[2021-08-05] MEDS ORDERED: ROCURONIUM BROMIDE 50 MG/5 ML VIAL As Ordered ONE (09:08)
[2021-08-05] MEDS ORDERED: BUPIVACAINE/EPIN 0.5% 30 ML VIAL As Ordered ONE (09:24)
[2021-08-05] MEDS ORDERED: ACETAMINOPHEN 1000MG 100ML IV BTL (OFIRMEV) (J0131 PER 10MG) As Ordered ONE (10:05)
[2021-08-05] MEDS ORDERED: SUGAMMADEX SODIUM 500 MG/5 ML VIAL (BRIDION) As Ordered ONE (10:11)
[2021-08-05] MEDS ORDERED: METOCLOPRAMIDE INJ 10MG/2ML VIAL (J2765 PER 1) As Ordered ONE (10:12)
--- NOTE | 2021-08-05 10:38 | ROOPDOC ---
[facility] Report Of Operation Report of Operation DATE OF PROCEDURE: 08/05/21 PREPROCEDURE DIAGNOSES: Chronic tonsillar. POSTPROCEDURE DIAGNOSES: Same. PROCEDURE PERFORMED: Tonsillectomy. SURGEON: MD Chase CADDY PACKER: None, ANESTHESIA: General. ESTIMATED BLOOD LOSS: Approximately less than 5 mL. COMPLICATIONS: None. REMARKS: . FINDINGS: SPECIMENS REMOVED: Right and left tonsil PROCEDURE NOTE: . Patient was seen in the office and was diagnosed with chronic tonsillitis. Decision was made in consultation with the patient, after explanation of risks and benefits to undergo the above-named procedure. Patient was admitted through the same-day surgery program, taken to the operating room where general anesthetic was administered via intravenous injection. Patient was then intubated endotracheally. Tonsil gag was placed in the mouth and expanded. This was secured to a Turpin stand. Red rubber catheter was placed through the nose and in the oropharynx for smoke evacuation. Right tonsil was grasped with an Allis forceps and retracted medially. Using electrocautery, the capsule was identified laterally. Tonsil was then removed from its fossa in an inferior to superior fashion. Once this was completed, several areas were cauterized. The left tonsil was then grasped with an Allis forceps and retracted medially. Using electrocautery, the capsule was identified laterally. Tonsil was removed from its fossa and inferior to superior fashion. Once this was completed, the bed was inspected, several areas were cauterized. 2 tonsil sponges were soaked in 0.5% Marcaine with epinephrine, one was placed in each tonsil bed for several minutes and then removed. The gag was then released, removed from the mouth. The TMJ joint was checked. The patient was then allowed to recover from the anesthetic and was taken to the post anesthesia care area in stable condition. There were no complications during this procedure. DESCRIPTION OF PROCEDURE: . Shahid Stone MD Aug 05, 2021 10:38
[2021-08-05] MEDS ORDERED: ONDANSETRON 4MG/2ML VIAL IV PRN ×2 (10:40→10:45)
[2021-08-05] MEDS ORDERED: fentaNYL 100 MCG/2 ML INJECTION (J3010) IV PRN (10:40)
[2021-08-05] MEDS ORDERED: LR 1,000 ML IV SCH (10:40)
[2021-08-05] MEDS ORDERED: oxyCODONE 5MG TAB PO PRN (10:40)
[2021-08-05] MEDS ORDERED: HYDROcodone/APAP LIQUID 7.5-325MG 15ML UDC (LORTAB ELIXIR) PO PRN (10:40)
[2021-08-05] MEDS ORDERED: HYDROMORPHONE HCL 0.5 MG/ 0.5 ML SYRINGE (J1170 PER 1) IV PRN (10:40)
[2021-08-05 11:45] VITALS: BP 128/75
== END 2021-08-05 12:15 | disposition home or self-care (01) ==
LOC: M SDC 07:31
PROVIDERS: ATTEND Otolaryngology
DX: J35.01 Chronic tonsillitis (principal)
CPT/HCPCS: 42826; 88302; J0131; J1100; J2250; J2405; J2765; J3010

== ENCOUNTER → 2021-08-15 | Outpatient (REF) ==
[~2021-08-15] MED LIST changes: -LR 1,000 ML IV ONE
[2021-08-15 13:41] LABS: RSV AMPLIFICATION NEGATIVE (NEGATIVE)
== END ==
LOC: M LABSMTC 11:30
PROVIDERS: ATTEND Family Medicine
DX: Z20.822 Contact with and (suspected) exposure to COVID-19 (principal)

== ENCOUNTER → 2021-08-19 | Outpatient (REF) ==
[2021-08-19 10:48] LABS: RSV AMPLIFICATION NEGATIVE (NEGATIVE)
== END ==
LOC: M LABSMTC 08:53
PROVIDERS: ATTEND Family Medicine
DX: Z20.822 Contact with and (suspected) exposure to COVID-19 (principal)

== ENCOUNTER → 2021-10-07 | Outpatient (REF) | LOC: M EMP 11:56 | PROVIDERS: ATTEND Family Medicine | DX: Z20.822 Contact with and (suspected) exposure to COVID-19 (principal) ==

== ENCOUNTER → 2022-01-16 | Outpatient (REF) | payer OTHER ==
[2022-01-16 15:49] LABS: GC DNA AMPLIFICATION NEGATIVE (NEGATIVE)
== END ==
LOC: M PLALAB 06:54
PROVIDERS: ATTEND Advanced Practice Midwife
DX: Z12.4 Encounter for screening for malignant neoplasm of cervix (principal); Z11.3 Encounter for screening for infections with a predominantly sexual mode of transmission
CPT/HCPCS: 87624; 87661; 87810; 87850; G0123

== ENCOUNTER → 2022-01-16 | Outpatient (CLI) | payer BC ==
[2022-01-16 14:29] LABS: HEPATITIS C VIRUS ABY INDEX 0.1 INDEX (<0.8); HIV 1&2 SCREEN CENTAUR NEGATIVE (NEGATIVE)
== END ==
LOC: M PLALAB 10:31
PROVIDERS: ATTEND Advanced Practice Midwife
DX: Z01.419 Encounter for gynecological examination (general) (routine) without abnormal findings (principal); Z11.3 Encounter for screening for infections with a predominantly sexual mode of transmission

== ENCOUNTER → 2022-06-06 | Outpatient (REF) | LOC: M EMP 07:00 | PROVIDERS: ATTEND Family Medicine | DX: Z20.822 Contact with and (suspected) exposure to COVID-19 (principal) ==

== ENCOUNTER → 2022-08-29 | Outpatient (REF) ==
[2022-08-29 13:26] LABS: RSV AMPLIFICATION NEGATIVE (NEGATIVE)
== END ==
LOC: M EMP 11:10
PROVIDERS: ATTEND Family Medicine
DX: Z20.822 Contact with and (suspected) exposure to COVID-19 (principal)

== ENCOUNTER → 2022-10-02 | Outpatient (CLI) | payer BC ==
[2022-10-02 16:34] LABS: BASO % 0.3 % (0.0-1.0); EOS # 0.2 10^3/uL (0.0-0.5); EOS % 2.3 % (0.0-3.0); HEMATOCRIT 38.6 % (36.0-47.0); HEMOGLOBIN 12.8 g/dl (12.0-15.5); LYMPH # 2.1 10^3/uL (1.5-5.0); LYMPH % 26.1 % (24.0-44.0); MEAN CORPUSCULAR HEMOGLOBIN 30.8 pg (27.0-33.0); MEAN CORPUSCULAR HGB CONC 33.2 g/dl (32.0-36.5); MONO # 0.5 10^3/uL (0.0-0.8); MONO % 6.1 % (2.0-8.0); NEUTROPHILS # 5.2 10^3/uL (1.5-8.5); NEUTROPHILS % 64.8 % (36.0-66.0); PLATELET COUNT, AUTOMATED 249 10^3/uL (150-450); RED BLOOD COUNT 4.15 10^6/uL (4.00-5.40)
[2022-10-02 17:03] LABS: TOTAL IRON BINDING CAPACITY 409 UG/DL (250-425)
[2022-10-02 17:04] LABS: ALBUMIN 3.7 G/DL (3.2-5.2); ALKALINE PHOSPHATASE 47 U/L (46-116); ALT/SGPT < 9 U/L (7.0-40); AST/SGOT 18 U/L (<34); BILIRUBIN,TOTAL 0.8 MG/DL (0.3-1.2); BLOOD UREA NITROGEN 8 MG/DL (9-23); CALCIUM LEVEL 9.3 MG/DL (8.5-10.1); CARBON DIOXIDE LEVEL 24 MMOL/L (20-31); CHLORIDE LEVEL 104 MMOL/L (98-107); CREATININE FOR GFR 0.79 MG/DL (0.55-1.30); GLOMERULAR FILTRATION RATE > 60.0 (>60); GLUCOSE, FASTING 75 MG/DL (60-100); IRON (FE) 182 UG/DL (50-170); PERCENT SATURATION 44.5 % (13.2-45.0); POTASSIUM SERUM 4.5 MMOL/L (3.5-5.1); SODIUM LEVEL 138 MMOL/L (136-145); TOTAL PROTEIN 7.2 G/DL (5.7-8.2)
[2022-10-02 17:05] LABS: FREE T4 1.03 NG/DL (0.89-1.76); THYROID STIMULATING HORMONE 2.366 uIU/ML (0.55-4.78); TOTAL 25(OH) VITAMIN D 41.1 NG/ML (20.0-100.0)
== END ==
LOC: M WUC 11:50
PROVIDERS: ATTEND Nurse Practitioner Family
DX: R53.83 Other fatigue (principal); R06.02 Shortness of breath

== ENCOUNTER → 2022-10-15 | Outpatient (REF) ==
[2022-10-15 09:50] LABS: RSV AMPLIFICATION NEGATIVE (NEGATIVE)
== END ==
LOC: M EMP 08:45
PROVIDERS: ATTEND Family Medicine
DX: Z11.52 Encounter for screening for COVID-19 (principal)

== ENCOUNTER → 2022-12-02 | Outpatient (CLI) | payer BC | LOC: M SLEEP HO 11:23 | PROVIDERS: ATTEND Nurse Practitioner Family | DX: G47.30 Sleep apnea, unspecified (principal) ==

== ENCOUNTER → 2023-05-01 | Outpatient (REF) | LOC: M EMP 08:23 | PROVIDERS: ATTEND Family Medicine | DX: Z11.52 Encounter for screening for COVID-19 (principal) ==

== ENCOUNTER → 2023-07-22 | Outpatient (CLI) | payer BC ==
[2023-07-22 09:57] LABS: CORTISOL AM 11.8 UG/DL (4.3-22.4)
[2023-07-22 09:59] LABS: CHOLESTEROL LEVEL 196 MG/DL (<200); CHOLESTEROL RISK RATIO 3.53 (<5); HDL CHOLESTEROL 55.4 MG/DL (>40); IRON (FE) 281 UG/DL (50-170); LDL CHOLESTEROL 117.2 MG/DL (<100); NON-HDL-C 140.6 MG/DL; TRIGLYCERIDES LEVEL 117 MG/DL (<150)
[2023-07-22 10:00] LABS: THYROXINE (T4) 10.5 UG/DL (4.5-10.9)
[2023-07-22 10:01] LABS: FOLLICLE STIMULATING HORMONE 7.5 mIU/ML; LUTEINIZING HORMONE 3.2 mIU/ML
[2023-07-22 10:02] LABS: HEMOGLOBIN A1c 4.6 % (4.0-6.0)
[2023-07-22 10:17] LABS: VITAMIN B12 LEVEL 429 PG/ML (211-911)
[2023-07-22 10:35] LABS: THYROGLOBULIN ANTIBODY < 15.0 U/ML (<60.0)
== END ==
LOC: M LAB 07:38
PROVIDERS: ATTEND Advanced Practice Midwife
DX: Z01.419 Encounter for gynecological examination (general) (routine) without abnormal findings (principal); F32.81 Premenstrual dysphoric disorder; R53.83 Other fatigue; L65.9 Nonscarring hair loss, unspecified; L70.9 Acne, unspecified; R23.4 Changes in skin texture

== ENCOUNTER → 2023-09-02 | Outpatient (REF) | LOC: M EMP 12:37 | PROVIDERS: ATTEND Family Medicine | DX: Z11.52 Encounter for screening for COVID-19 (principal) ==

== ENCOUNTER → 2023-09-23 | Outpatient (REF) ==
[2023-09-23 16:06] LABS: RSV AMPLIFICATION NEGATIVE (NEGATIVE)
== END ==
LOC: M EMP 13:41
PROVIDERS: ATTEND Family Medicine
DX: Z11.52 Encounter for screening for COVID-19 (principal)

== ENCOUNTER → 2024-01-08 | Outpatient (REF) | LOC: M EMP 15:43 | PROVIDERS: ATTEND Family Medicine | DX: Z11.52 Encounter for screening for COVID-19 (principal) ==

== ENCOUNTER → 2024-09-12 | Outpatient (REF) | LOC: M EMP 11:20 | PROVIDERS: ATTEND Family Medicine | DX: Z11.52 Encounter for screening for COVID-19 (principal) ==

== ENCOUNTER → 2025-04-20 | Outpatient (REF) | payer BC ==
[2025-04-20 15:07] LABS: Trichomonas vaginalis (AMP) NOT DETECTED (NEGATIVE)
[2025-04-20 15:31] LABS: GC DNA AMPLIFICATION NEGATIVE (NEGATIVE)
== END ==
LOC: M PLALAB 10:56
PROVIDERS: ATTEND Advanced Practice Midwife
DX: Z12.4 Encounter for screening for malignant neoplasm of cervix (principal); Z11.3 Encounter for screening for infections with a predominantly sexual mode of transmission

== ENCOUNTER → 2025-04-20 | Outpatient (CLI) | payer BC ==
[2025-04-23 13:37] LABS: HPV APTIMA Not Detected (Not Detected)
== END ==
LOC: M WHC 10:57
PROVIDERS: ATTEND Advanced Practice Midwife
DX: Z12.31 Encounter for screening mammogram for malignant neoplasm of breast (principal); R92.333 Mammographic heterogeneous density, bilateral breasts; Z12.4 Encounter for screening for malignant neoplasm of cervix; Z11.3 Encounter for screening for infections with a predominantly sexual mode of transmission
CPT/HCPCS: 77063; 77067; 87624; G0123

== ENCOUNTER → 2025-08-09 | Outpatient (REF) | LOC: M EMP 13:44 | PROVIDERS: ATTEND Family Medicine | DX: Z01.89 Encounter for other specified special examinations (principal) ==

== ENCOUNTER → 2025-09-16 | Outpatient (REF) | payer BC | LOC: M LAB REF 18:51 | DX: B34.9 Viral infection, unspecified (principal) ==